=== PATIENT | female | born 1955 | race Caucasian/White ===

== ENCOUNTER → 2023-01-21 | Outpatient (CLI) | payer MEDICARE ==
[2023-01-21 09:59] LABS: CREATININE 0.8 mg/dL (0.5-1.5)
== END | disposition home or self-care (01) ==
LOC: LAB 08:45
PROVIDERS: ATTEND Internal Medicine Gastroenterology
DX: C18.9 Malignant neoplasm of colon, unspecified (principal)
CPT/HCPCS: 36415; 82378; 82565; 84520

== ENCOUNTER → 2023-01-24 | Outpatient (CLI) | payer MEDICARE ==
[~2023-01-24] MED LIST: ALEN35TA53 PO; ASPI-1026 PO; ATOR10TA69 PO; CALCIUM PO; FOLIC ACID PO; IOHEXOL 350 MG/ML 100ML INFUS..BTL IV ONE; IOHEXOL-350 75 ML VIAL IV ONE; VITAMIN B1 PO; VITAMIN B12 PO
== END ==
LOC: RAH 10:00
PROVIDERS: ATTEND Internal Medicine Gastroenterology
DX: C18.9 Malignant neoplasm of colon, unspecified (principal); J43.9 Emphysema, unspecified; K63.89 Other specified diseases of intestine
CPT/HCPCS: 71250; 74178; Q9967 ×2

== ENCOUNTER 2023-02-01 14:00 | Inpatient (IN) | payer MEDICARE ==
[2023-01-31 11:40] LABS: BASOPHILS % (AUTO) 0.6 % (0.0-5.0); EOSINOPHILS % (AUTO) 0.5 % (0.0-8.0); HEMATOCRIT 46.9 % (36-48); LYMPHOCYTES % (AUTO) 30.7 % (21.0-51.0); MEAN CORPUSCULAR HEMOGLOBIN 30.5 pg (27.0-33.0); MEAN CORPUSCULAR VOLUME 95.3 fL (79-99); NEUTROPHILS % (AUTO) 60.9 % (40.0-77.0); PLATELET COUNT (AUTO) 284 K/uL (130-400); RED BLOOD CELL COUNT(AUTO) 4.92 MIL/uL (4.00-5.50); RED CELL DISTRIBUTION WIDTH 15.7 % (11.0-15.5); WHITE BLOOD COUNT (AUTO) 6.5 K/uL (4.8-10.8)
[2023-01-31 11:44] VITALS: BP 133/72; PULSE 77; RESP 16
[2023-01-31 11:50] LABS: INR 0.93 (0.85-1.15); PROTHROMBIN TIME 10.3 SEC (9.6-11.6)
[2023-01-31 11:51] LABS: PARTIAL THROMBOPLASTIN TIME 26.7 SEC (26.3-35.5)
[2023-01-31 11:55] LABS: ALBUMIN 3.6 g/dL (3.5-5.0); CREATININE 0.6 mg/dL (0.5-1.5); POTASSIUM 4.2 mmol/L (3.5-5.1); TOTAL PROTEIN, SERUM 7.5 g/dL (6.0-8.3)
[~2023-02-01] VITALS: Ht 167.6 cm; Wt 61.4 kg
[~2023-02-01 14:00] MED LIST changes: -IOHEXOL 350 MG/ML 100ML INFUS..BTL IV ONE; -IOHEXOL-350 75 ML VIAL IV ONE
[2023-02-05] VITALS (29 sets, daily range): BP systolic 127–189; BP diastolic 64–100; PULSE 56–83; RESP 12–20
[2023-02-05] MEDS ORDERED: MEROPENEM 1 GM VIAL ONE (06:42)
[2023-02-05] MEDS ORDERED: LACTATED RINGERS 1000ML 1,000 ML IV ONE (06:42)
[2023-02-05] MEDS ORDERED: BUPIVACAINE/PF 0.5% 30ML VIAL ONE (07:20)
[2023-02-05] MEDS ORDERED: BUPIVACAINE/PF 0.25% 30ML VIAL IJ ONE (07:20)
[2023-02-05] MEDS ORDERED: SUCCINYLCHOLINE 200MG/10ML SYR ONE (07:22)
[2023-02-05] MEDS ORDERED: DEXAMETHASONE SOD PHOSPHATE 10MG/ML 1ML VIAL ONE (07:22)
[2023-02-05] MEDS ORDERED: LIDOCAINE PF 100MG/5ML (2%) SYRINGE 5ML ONE (07:22)
[2023-02-05] MEDS ORDERED: PROPOFOL 10 MG/ML 20ML VIAL IV ONE (07:23)
[2023-02-05] MEDS ORDERED: ONDANSETRON 4MG INJ ONE (07:23)
[2023-02-05] MEDS ORDERED: PHENYLEPHRINE HCL 10 MG/ML 1ML VIAL IV ONE (07:23)
[2023-02-05] MEDS ORDERED: ROCURONIUM 10MG/1ML SYR 10 MG/ML ML ONE (07:23)
[2023-02-05] MEDS ORDERED: MIDAZOLAM HCL 1 MG/ML 2ML VIAL ONE (07:23)
[2023-02-05] MEDS ORDERED: FENTANYL CITRATE PF 50 MCG/1 ML 5ML AMP IV ONE (07:24)
[2023-02-05] MEDS ORDERED: DEXMEDETOMIDINE HCL 200 MCG/2 ML VIAL IV ONE (07:34)
[2023-02-05] MEDS ORDERED: KETAMINE 50MG/ML SYRINGE 50 MG/ML DISP.SYRIN ONE (07:35)
[2023-02-05] MEDS ORDERED: MEROPENEM 1 GM VIAL IVPB ONE (07:55)
[2023-02-05] MEDS ORDERED: LIDOCAINE 1%-EPI 1:100,000 20 ML VIAL IJ ONE (08:06)
[2023-02-05] MEDS ORDERED: BUPIVACAINE/PF 0.5% 30ML VIAL INJ ONE (08:06)
[2023-02-05] MEDS ORDERED: GLYCOPYRROLATE 1 MG/5 ML SYRINGE ONE (10:33)
[2023-02-05] MEDS ORDERED: NEOSTIGMINE 5MG/5ML SYR IV ONE (10:33)
[2023-02-05] MEDS ORDERED: LIDOCAINE HCL-MPF 2% 10ML AMP IJ ONE (10:34)
[2023-02-05] MEDS ORDERED: HYDROMORPHONE 0.5 MG SYG (0.5MG/0.5ML) IVP PRN (11:30)
[2023-02-05] MEDS ORDERED: OXYCODONE HCL 5 MG TAB PO PRN (11:30)
[2023-02-05] MEDS: LACTATED RINGERS 1000ML 1,000 ML IV SCH ×2 (11:30→22:35)
[2023-02-05] MEDS ORDERED: ONDANSETRON 4MG INJ IVP PRN (11:30)
[2023-02-05] MEDS ORDERED: METOPROLOL TARTRATE 1 MG/ML 5ML VIAL IV ONE (11:37)
[2023-02-05] MEDS: ACETAMINOPHEN 500 MG TABLET PO SCH ×2 (12:00→20:08)
[2023-02-05] MEDS ORDERED: SUGAMMADEX SODIUM 200 MG/2 ML VIAL IV ONE (12:02)
[2023-02-05 12:09] LABS: ABG BASE EXCESS -8.7 mmol/L (-2.0-3.0); ABG OXYGEN SATURATION 99.2 % (95.0-99.0); ABG PCO2 41 mmHg (32-45)
[2023-02-05] MEDS ORDERED: SODIUM BICARB 50MEQ 50ML VIAL 50 ML ONE (12:12)
[2023-02-05] MEDS ORDERED: SODIUM BICARB 50MEQ 50ML VIAL 100 ML ONE (12:15)
[2023-02-05] MEDS: NALOXONE HCL 0.4 MG/1 ML ML ONE ×2 (12:17→12:34)
[2023-02-05 12:46] LABS: ABG BASE EXCESS -0.6 mmol/L (-2.0-3.0); ABG HCO3 25.1 mmol/L (21.0-28.0); ABG OXYGEN SATURATION 95.2 % (95.0-99.0); ABG PCO2 45 mmHg (32-45)
[2023-02-05] MEDS: GABAPENTIN 100 MG CAPSULE PO SCH ×2 (14:00→20:02)
[2023-02-05] MEDS ORDERED: MAGNESIUM 2GM PREMIX 50ML 50 ML IV PRN (15:30)
[2023-02-05] MEDS ORDERED: POTASSIUM CHLORIDE 10% ELIXIR 20 MEQ/15 ML UDCUP PO PRN (15:30)
[2023-02-05] MEDS ORDERED: GLUCAGON 1MG KIT 1 MG ML IM PRN (15:30)
[2023-02-05] MEDS ORDERED: KCL 20 MEQ ERTAB PO PRN (15:30)
[2023-02-05] MEDS ORDERED: DEXTROSE 50%-WATER 50 ML DISP.SYRIN IV PRN (15:30)
[2023-02-05] MEDS ORDERED: POTASSIUM CHLORIDE 20MEQ/100ML 100 ML IV PRN (15:30)
[2023-02-05] MEDS: INSULIN HUMULIN R 100 UNIT/ML 3ML SQ SCH ×2 (16:30→20:08)
[2023-02-05] MEDS: HEPARIN 5,000 UNIT VIAL SQ SCH (22:28)
[2023-02-06] VITALS (8 sets, daily range): BP systolic 110–140; BP diastolic 61–74; PULSE 59–76; RESP 17–20; O2SAT 98
[2023-02-06] MEDS: ACETAMINOPHEN 500 MG TABLET PO SCH ×4 (04:39→20:19)
[2023-02-06 05:18] LABS: BASOPHILS % (AUTO) 0.2 % (0.0-5.0); HEMATOCRIT 36.1 % (36-48); LYMPHOCYTES % (AUTO) 18.8 % (21.0-51.0); MEAN CORPUSCULAR HEMOGLOBIN 30.6 pg (27.0-33.0); MEAN CORPUSCULAR HGB CONC 31.6 g/dL (32.0-36.0); MEAN CORPUSCULAR VOLUME 96.8 fL (79-99); MONOCYTES % (AUTO) 9.8 % (3.0-13.0); NEUTROPHILS % (AUTO) 70.8 % (40.0-77.0); PLATELET COUNT (AUTO) 177 K/uL (130-400); RED BLOOD CELL COUNT(AUTO) 3.73 MIL/uL (4.00-5.50); RED CELL DISTRIBUTION WIDTH 15.6 % (11.0-15.5); WHITE BLOOD COUNT (AUTO) 9.2 K/uL (4.8-10.8)
[2023-02-06] MEDS: INSULIN HUMULIN R 100 UNIT/ML 3ML SQ SCH ×4 (05:27→20:44)
[2023-02-06 05:49] LABS: CREATININE 0.7 mg/dL (0.5-1.5); POTASSIUM 3.6 mmol/L (3.5-5.1)
[2023-02-06] MEDS: LACTATED RINGERS 1000ML 1,000 ML IV SCH ×2 (09:28→19:28)
[2023-02-06] MEDS: GABAPENTIN 100 MG CAPSULE PO SCH ×3 (09:56→20:19)
[2023-02-06] MEDS: HEPARIN 5,000 UNIT VIAL SQ SCH ×3 (10:06→20:39)
[2023-02-06] MEDS ORDERED: ATORVASTATIN 10 MG TABLET PO SCH (21:00)
[2023-02-07] MEDS: ACETAMINOPHEN 500 MG TABLET PO SCH ×2 (04:13→11:34)
[2023-02-07] MEDS: LACTATED RINGERS 1000ML 1,000 ML IV SCH (04:13)
[2023-02-07 04:33] VITALS: BP 139/76; PULSE 78; RESP 20
[2023-02-07 05:33] LABS: BASOPHILS % (AUTO) 0.4 % (0.0-5.0); EOSINOPHILS % (AUTO) 0.3 % (0.0-8.0); HEMATOCRIT 36.3 % (36-48); LYMPHOCYTES % (AUTO) 26.3 % (21.0-51.0); MEAN CORPUSCULAR HEMOGLOBIN 30.5 pg (27.0-33.0); MEAN CORPUSCULAR HGB CONC 32.2 g/dL (32.0-36.0); MEAN CORPUSCULAR VOLUME 94.5 fL (79-99); MONOCYTES % (AUTO) 7.6 % (3.0-13.0); NEUTROPHILS % (AUTO) 65.1 % (40.0-77.0); PLATELET COUNT (AUTO) 174 K/uL (130-400); RED BLOOD CELL COUNT(AUTO) 3.84 MIL/uL (4.00-5.50); RED CELL DISTRIBUTION WIDTH 15.6 % (11.0-15.5); WHITE BLOOD COUNT (AUTO) 7.2 K/uL (4.8-10.8)
[2023-02-07] MEDS: INSULIN HUMULIN R 100 UNIT/ML 3ML SQ SCH ×2 (05:35→11:30)
[2023-02-07 05:47] LABS: CREATININE 0.8 mg/dL (0.5-1.5); POTASSIUM 3.1 mmol/L (3.5-5.1)
[2023-02-07 08:00] VITALS: BP 150/77; PULSE 70; RESP 16
[2023-02-07] MEDS ORDERED: KCL 20 MEQ ERTAB PO ONE (08:00)
[2023-02-07] MEDS ORDERED: AMLODIPINE 5 MG TAB PO SCH (10:00)
[2023-02-07] MEDS: GABAPENTIN 100 MG CAPSULE PO SCH ×2 (10:52→15:10)
[2023-02-07] MEDS: HEPARIN 5,000 UNIT VIAL SQ SCH ×2 (10:54→14:00)
[2023-02-07 11:53] VITALS: BP 146/76; PULSE 68; RESP 18
[2023-02-07 16:00] VITALS: BP 142/79; PULSE 72; RESP 18
== END 2023-02-07 18:15 | disposition home or self-care (01) | DRG 330 ==
LOC: DAHIP 02-05 06:25 → 3CH 02-05 13:00
PROVIDERS: ADMIT Surgery; ATTEND Surgery
PROC: 8E0W4CZ Robotic Assisted Procedure of Trunk Region, Percutaneous Endoscopic Approach (ICD-10-PCS; 2023-02-05)
PROC: 0DBF4ZZ Excision of Right Large Intestine, Percutaneous Endoscopic Approach (ICD-10-PCS; principal; 2023-02-05 07:39)
DX: C18.5 Malignant neoplasm of splenic flexure (principal); C19 Malignant neoplasm of rectosigmoid junction; E78.5 Hyperlipidemia, unspecified; Z87.891 Personal history of nicotine dependence; Z20.822 Contact with and (suspected) exposure to COVID-19
CPT/HCPCS: 36415; 36600; 80048; 80053; 82803; 82948; 85025; 85610; 85730; 86850; 86900; 86901; 87426; 93005; 97039; A4344; G0378; J0330; J1100; J1644; J2001; J2185; J2250; J2310; J2371; J2405; J2704; J2710; J3010; J3490; J7030; J7120; A4215; A4221; A4222; A4223; A4600; A4649; A4930; A6260; C1769; G0168; G8980-CI; G8983-CI